=== PATIENT | female | born 1995 | race Caucasian/White ===

== ENCOUNTER → 2021-06-21 | Outpatient (CLI) | payer OTHER ==
[2021-06-22 01:12] LABS: FSH 4.6 mIU/mL (.); LUTEINIZING HORMONE 4.4 mIU/mL (.); PROLACTIN 14.2 ng/mL (4.8-23.3)
[2021-06-22 14:08] LABS: INSULIN LEVEL 16.5 uIU/mL (2.6-24.9)
[2021-06-25 17:07] LABS: TESTOSTERONE FREE 0.39 ng/dL (0.10-0.85); TESTOSTERONE TOTAL 29 ng/dL (13-71)
== END ==
LOC: LAB 12:02
PROVIDERS: ATTEND Obstetrics & Gynecology
DX: N92.6 Irregular menstruation, unspecified (principal)
CPT/HCPCS: 36415; 82627; 82947; 83001; 83002; 83525; 84146; 84402; 84403; 84443